=== PATIENT | male | born 1995 | race American Indian/Alaskan Native ===

== ENCOUNTER 2017-10-22 21:06 | Emergency (ER) | payer BC, OTHER ==
[~2017-10-22] VITALS: Ht 167.6 cm; Wt 86.3 kg
[~2017-10-22 21:06] MED LIST: NO HOME MEDS
[2017-10-22 21:07] VITALS: BP 129/71
[2017-10-22] MEDS ORDERED: CEPH-572 PO (21:14)
[2017-10-22] MEDS ORDERED: SULF1TAB49 PO (21:14)
[2017-10-22] MEDS ORDERED: bacitracin 15gm ointment TP ONE (21:15)
[2017-10-22] MEDS ORDERED: TETanus/Pertussis (Acell)/Diphther VAC/PF (Tdap-Adult) 0.5ml syringe IM ONE (21:15)
== END 2017-10-22 21:33 ==
LOC: ER 21:06 → EEVIPCON 21:06 → ER 21:33
DX: S51.801A Unspecified open wound of right forearm, initial encounter (principal); L03.113 Cellulitis of right upper limb; F19.10 Other psychoactive substance abuse, uncomplicated; Z79.899 Other long term (current) drug therapy; X58.XXXA Exposure to other specified factors, initial encounter; Y93.89 Activity, other specified; Y92.89 Other specified places as the place of occurrence of the external cause; Y99.8 Other external cause status
CPT/HCPCS: 87070; 87077; 87186; 90471; 90715; 99284